=== PATIENT | male | born 1935 | race Caucasian/White ===

== ENCOUNTER 2018-04-26 13:15 | Inpatient (IN) | payer MEDICARE, BC ==
[2018-04-26] VITALS (17 sets, daily range): BP systolic 102–136; BP diastolic 59–88; PULSE 58–90; RESP 14–22; Ht 180.3 cm; Wt 74.8 kg
[~2018-04-26] VITALS: Ht 180.3 cm; Wt 74.8 kg
[~2018-04-26 13:15] MED LIST: CEFAZOLIN 2 GM/50 ML (PMX) 50 ML IVPB ONE; DESFLURANE 15 MIN ONE; DEXAMETHASONE 4 MG/ML 5 ML INJ ONE; EZET10TA31 PO; LABETALOL HCL 20MG INJ ONE; LACTATED RINGER'S 1,000 ML IV* SCH; LIDOCAINE 2% (SDV) 5 ML INJ ONE; LISI-327 PO; ONDANSETRON 4 MG INJ ONE; PROPOFOL 200 MG INJ ONE
[2018-04-26] MEDS ORDERED: LISI1TAB6 PO (13:50)
[2018-04-26] MEDS ORDERED: ATOR20TA38 PO (13:51)
[2018-04-26] MEDS ORDERED: MIDAZOLAM 1 MG/ML 2 ML INJ ONE (14:46)
[2018-04-26] MEDS ORDERED: FENTAnyl 50 MCG/ML VIAL ONE ×2 (14:46→16:25)
[2018-04-26] MEDS ORDERED: METOCLOPRAMIDE 10 MG INJ ONE (14:47)
[2018-04-26] MEDS ORDERED: CEFAZOLIN 1 GM INJ ONE (14:48)
[2018-04-26] MEDS ORDERED: GLYCOPYRROLATE 0.4 MG INJ ONE (14:50)
[2018-04-26] MEDS ORDERED: NEOSTIGMINE 3 MG/3 ML SYRINGE ONE (14:50)
--- NOTE | 2018-04-26 14:59 | HPN ---
Date/Time of Note Date/Time of Note DATE: 04/26/18 TIME: 14:59 Interval H&P Admission Note Pt. seen H&P reviewed: No system changes OLY CISNEROS PA-C Apr 26, 2018 14:59
[2018-04-26] MEDS ORDERED: DIPHENHYDRAMINE 25 MG CAP PO PRN (15:00)
[2018-04-26] MEDS ORDERED: ACETAMINOPHEN 325 MG TAB PO PRN (15:00)
[2018-04-26] MEDS ORDERED: D5W-0.45 NACL + KCL 20 MEQ 1,000 ML IV SCH (15:00)
[2018-04-26] MEDS ORDERED: HYDROCODONE/APAP (10/325) TAB PO PRN ×2 (15:00)
[2018-04-26] MEDS ORDERED: BISACODYL 10 MG SUPP PR PRN (15:00)
[2018-04-26] MEDS ORDERED: AL HYDROX/MG HYDROX/SIMETH 30 ML CUP PO PRN (15:00)
[2018-04-26] MEDS ORDERED: NALOXONE (0.4 MG/ML) INJ IV PRN (15:00)
[2018-04-26] MEDS ORDERED: CEPASTAT LOZENGE MT PRN (15:00)
[2018-04-26] MEDS ORDERED: ONDANSETRON 4 MG INJ IV PRN ×2 (15:00→15:30)
[2018-04-26] MEDS ORDERED: DIPHENHYDRAMINE 50 MG INJ IV PRN ×2 (15:00→15:30)
[2018-04-26] MEDS ORDERED: CYCLOBENZAPRINE 10 MG TAB PO PRN (15:00)
[2018-04-26] MEDS ORDERED: HYDROmorphONE 0.5 MG/0.5 ML SYG IV PRN (15:00)
--- NOTE | 2018-04-26 15:19 | PREAC ---
Date/Time of Note Date/Time of Note DATE: 04/26/18 TIME: 15:18 Anesthesia Eval and Record Evaluation Time Pre-Procedure Interview DATE: 04/26/18 TIME: 15:18 Age 82 Sex male NPO: 8 hrs Preoperative diagnosis cervical spinal stenosis Planned procedure posterior cervical fusion Past Medical History Past Medical History: Includes Cardio: HTN Surgery & Anesthesia Issues Hx of difficult intubation Meds Anticoagulation: No Beta Carmen within 24 hr: No Reason Beta Carmen not given: Pt. not on B-Carmen Reported Medications Atorvastatin Calcium* (Atorvastatin Calcium*) 20 Mg Tablet, 20 MG PO QHS, #30 TAB 04/26/18 Lisinopril/Hydrochlorothiazide (Lisinopril-Hctz 20-12.5 mg Tab) 1 Each Tablet, 1 EACH PO DAILY, TAB 04/26/18 Discontinued Reported Medications Lisinopril-Hydrochlorothiazide (Lisinopril-HCTZ) 1 Tab Tablet, 1 TAB PO DAILY 06/29/13 Ezetimibe* (Zetia*) 10 Mg Tablet, 10 MG PO DAILY 02/14/11 Current Medications Lactated Ringer's 1,000 ml @ 0 mls/hr Q0M IV* ; Start 04/26/18 at 11:00; Stop 04/26/18 at 19:00 Potassium Chloride/Dextrose/ Sod Cl 1,000 ml @ 100 mls/hr Q10H IV ; Start 04/26/18 at 15:00; Status UNV Acetaminophen/ Hydrocodone Bitart ([place] (10/325)) 1 tab Q4H PRN PO PAIN LEVEL 1-5; Start 04/26/18 at 15:00; Status UNV Acetaminophen/ Hydrocodone Bitart ([place] (10/325)) 2 tab Q4H PRN PO PAIN LEVEL 6-10; Start 04/26/18 at 15:00; Status UNV Hydromorphone HCl (Dilaudid) 0.2 mg Q1H PRN IV BREAKTHROUGH PAIN; Start 04/26/18 at 15:00; Status UNV Cefazolin Sodium 50 ml @ 100 mls/hr Q8H IVPB ; Start 04/26/18 at 15:00; Stop 04/27/18 at 07:29; Status UNV Ondansetron HCl (Zofran Inj) 4 mg Q6H PRN IV NAUSEA AND/OR VOMITING; Start 04/26/18 at 15:00; Status UNV Bisacodyl (Dulcolax Supp) 10 mg DAILY PRN [place] CONSTIPATION; Start 04/26/18 at 15:00; Status UNV Docusate Sodium (Colace) 100 mg BID PO ; Start 04/26/18 at 21:00; Status UNV Al Hydrox/Mg Hydrox/Simethicone (Mag-Al Plus) 15 ml Q6H PRN PO const; Start 04/26/18 at 15:00; Status UNV Acetaminophen (Tylenol Tab) 650 mg Q4H PRN PO fever; Start 04/26/18 at 15:00; Status UNV Cyclobenzaprine HCl (Flexeril) 5 mg TID PRN PO MUSCLE SPASMS; Start 04/26/18 at 15:00; Status UNV Phenol (Cepastat Lozenge) 1 lozenge PRN PRN MT SORE THROAT; Start 04/26/18 at 15:00; Status UNV Diphenhydramine HCl (Benadryl) 25 mg Q6H PRN PO ITCHING; Start 04/26/18 at 15:00; Status UNV Diphenhydramine HCl (Benadryl) 25 mg Q6H PRN IV ITCHING; Start 04/26/18 at 15:00; Status UNV Naloxone HCl (Narcan) 0.2 mg Q2M PRN IV rr; Start 04/26/18 at 15:00; Status UNV Meds reviewed: Yes Allergies Coded Allergies: No Known Allergies (Verified Allergy, Unknown, 04/26/18) PER WRITTEN ORDER Allergies Reviewed: Yes Labs/Studies Labs Reviewed: Reviewed by anesthesiologist test: N/A Studies: ECG, CXR Pre-procedure Exam Last vitals Vital Signs Date Temp Pulse Resp B/P (MAP) Pulse Ox O2 O2 Flow FiO2 Time Delivery Rate 04/26/18 98.8 90 16 136/81 93 Room Air 13:52 (99) Airway: Adequate mouth opening, Adequate thyromental dist Mallampati: Mallampati III Teeth: Normal Lung: Normal Heart: Normal ASA Physical Status ASA physical status: 3 Emergency: None Planned Anesthetic General/MAC: ETT Planned Pain Management Parenteral pain med, Local by surgeon Pre-operative Attestations Prior to commencing anesthesia and surgery, the patient was re-evaluated, there was verification of: *The patient's identity *The results of appropriate recent lab work and preoperative vital signs *The above evaluation not changing prior to induction *Anesthetic plan, risk benefits, alternative and complications discussed with patient/family; questions answered; patient/family understands, accepts and wishes to proceed. SALOMON NUGENT MD Apr 26, 2018 15:19
[2018-04-26] MEDS ORDERED: SURGIFOAM POWDER 1 GM KIT ONE (15:25)
[2018-04-26] MEDS ORDERED: BUPIVACAINE 0.5%/EPI (SDV) 30 ML INJ ONE (15:25)
[2018-04-26] MEDS ORDERED: POLYMYXIN/BACITRACIN 1L IRRIG ONE (15:27)
[2018-04-26] MEDS ORDERED: LEVALBUTEROL (NEB) 1.25 MG/0.5 ML AMP HHN PRN (15:30)
[2018-04-26] MEDS ORDERED: MEPERIDINE 25 MG INJ IV PRN (15:30)
[2018-04-26] MEDS ORDERED: hydrALAzine 20 MG INJ IV PRN (15:30)
[2018-04-26] MEDS ORDERED: LABETALOL HCL 20MG INJ IV PRN (15:30)
[2018-04-26] MEDS ORDERED: FENTAnyl 50 MCG/ML VIAL IV PRN ×2 (15:30)
[2018-04-26] MEDS ORDERED: HYDROmorphONE 1 MG/5 ML IV SYRINGE IV PRN ×3 (15:30)
[2018-04-26] MEDS ORDERED: THROMBIN 5000 UNIT VIAL ZFS ONE (15:38)
[2018-04-26] MEDS ORDERED: CEFAZOLIN 1 GM/50 ML (PMX) 50 ML IVPB SCH (16:00)
[2018-04-26] MEDS ORDERED: BUPIVACAINE 0.25% (MPF) 30 ML INJ ONE (16:51)
[2018-04-26] MEDS ORDERED: BUPIVACAINE 0.25% (MPF) 30 ML INJ INJ ONE (17:04)
--- NOTE | 2018-04-26 17:23 | SIPON ---
Date/Time of Note Date/Time of Note DATE: 04/26/18 TIME: 17:22 Operative Report Preoperative Diagnosis Cervical disc disease and stenosis Postoperative Diagnosis Cervical disc disease and stenosis Operation/Procedure Performed Posterior cervical fusion with instrumentation Surgeon see signature line speech assistant Coco Martin PA-C Anesthesia: general Estimated blood loss: 10 - 50 ml's Transfusion Required none Specimen None Grafts/Implants Cage and intervertebral screws Complications none JOEL MERCEDES MD Apr 26, 2018 17:23
--- NOTE | 2018-04-26 17:44 | OPR ---
DATE OF OPERATION: 04/26/2018 PREOPERATIVE DIAGNOSES: 1. C5 to C6, C6 to C7 facet disease and chronic neck pain. 2. History of C7 spinous process fracture. POSTOPERATIVE DIAGNOSES: 1. C5 to C6, C6 to C7 facet disease and chronic neck pain. 2. History of C7 spinous process fracture. PROCEDURES: 1. Instrumented cervical fusion at C5 to C6 and C6 to C7. 2. Posterolateral fusion at C5 to C6 and C6 to C7. 3. Intervertebral mechanical device at C5 to C6 and C6 to C7 bilaterally. 4. Use of C-arm fluoroscopy with interpretation without radiologist present. 5. Intraoperative neuromonitoring. 6. Use of allograft. IMPLANTS: 1. Todd DTRAX 5 mm cage bilaterally at C5 to C6 with integral screws. 2. A 4 mm cage bilaterally at C6 to C7 with integral screw. 3. Biosphere. PRIMARY SURGEON: Brain Dewey MD CERTIFIED FIRE INVESTIGATOR: Coco Martin PA-C NEED FOR ABA TUTOR: During this spinal surgical procedure, my library serials assistant was used to retract and protect the spinal nerves and dural sac. My library serials assistant also employed the suction catheters to ev acuate blood from the surgical field to improve visualization of the neural structures. The assistan t was medically necessary to facilitate the completion of the surgery in a safe and expeditious [facility] r. [facility] regulations, as well as hospital bylaws, preclude the use of non-licensed [facility] care personnel, such as operating room technicians, to perform these functions. FINDINGS: Neuromonitoring at the start of the case revealed C5 amplitude down 10% bilaterally, C6 do wn 30% bilaterally, C7 down 30% bilaterally, C8 down 20% bilaterally. At the end of the case, nerve signals returned to normal. ESTIMATED BLOOD LOSS: 40 mL. DRAINS: None. SPECIMENS: None. COMPLICATIONS OF PROCEDURES: None. ANESTHESIOLOGIST: Dr. Diallo. TYPE OF ANESTHESIA: General. INDICATIONS FOR PROCEDURE: This is an 82-year-old gentleman with chronic neck pain in setting of cer vical facet disease at C5 to C6 and C6 to C7. Multiple diagnostic injections were done preoperativel y and after failure of conservative measures, I recommended that he undergo the above procedure. Pre operatively, we discussed risks, benefits, alternatives. He understood and wished to proceed. DESCRIPTION OF PROCEDURE IN DETAIL: The patient was identified in the preoperative holding area, giv en Ancef antibiotics in the operating room where he was successfully placed under general anesthesia. Neuromonitoring were placed, sequential devices were applied. Arterial line was placed. Remote in traoperative neuromonitoring was performed by Dr. Killian from 15:30 until 17:20 to include SSEP, M EP and EMG performed by [employer]. The patient was placed on the operating table in prone pos ition over bolsters. Arms were tucked. Neck was prepped and draped in usual sterile fashion. Using the sterile fluoroscope, I identified the incision site. I anesthetized the skin with Marcaine and epinephrine. Incision was made near the C7 spinous process. I then made parasagittal fascial incisi ons. Using the appropriate instrumentation, I was able to enter the facet joints bilaterally at C5 t o C6 and C6 to C7. I prepared the endplates at both levels. Using biplanar C-arm fluoroscope, I con firm that I was within the facet joints and neither medial nor lateral. Once I prepared the endplate s, I chose the appropriate graft height. I then took the titanium cage within which I placed allogra ft and I impacted intervertebral biomechanical device within the facet joints of C5 to C6 and C6 to C 7 bilaterally, followed by placement of the integral screw. I then decorticated the posterior facets and placed allograft for posterolateral fusion at C5 to C6 and C6 to C7. Once this was done, I took AP, lateral images. I was happy with the placement of the hardware and alignment of spine. The wou nd was irrigated. After injecting Surgifoam, hemostasis was achieved with Bovie cautery. At this po int, all nerve signals returned to normal. I then proceeded to close the wound in layers, closing de ep fascia with #1 Vicryl stitch. I closed the subcutaneous tissue with a 2-0 Vicryl stitch. A 4-0 M onocryl closure was then performed. Dermabond and sterile dressings were then applied. The patient was awakened from anesthesia and taken to the recovery room in stable condition. Lap, sponge and ins trument counts were correct x2. There were no apparent complications during the procedure. The patient will be admitted to the [facility] for routine postoperative care to include pain co ntrol, neurovascular checks, antibiotics and physical therapy. Dictated By: BRAIN BAH/LARISA Conf#: [id number] [facility]#: [id number]
--- NOTE | 2018-04-26 18:07 | NUR ---
PACU NOTES: PATIENT AWAKE AND ALERT. ON 2 L NC 100% S/P C5-C7 POSTERIOR CERVICAL FUSION W/ 4X4 TEGADERM DRESSING POSTERIOR CERVICAL ( BACK OF HIS NECK) NO DRAIN NO BLEEDING, ABLE TO TURN AND REPOSITION. A-LINE ON LEFT RADIAL DISCONTINUED. NO STEPHEN CATH DUE TO VOID. IVF INFUSING ON LEFT FOREARM. ICE PACK PLACED ON HIS CERVICAL SURGICAL SITE. NO COMPLAIN OF PAIN. INCENTIVE SPIROMETER ABLE TO DO UPTO 1500 X5. FAMILY NOTIFIED OF TRANSFER TO ROOM 402. DR. MERCEDES WITH ORDER TO DISCHARGE PATIENT AFTER WALKING WITH RN, AFTER VOIDING,DRINKING AND WHEN STABLE. REPORT GIVEN TO RADHA RN 64, 124/86,99% 18, 98.5
--- NOTE | 2018-04-26 18:40 | NUR ---
PACU NOTES: PATIENT TOLERATED P.O FLUIDS, DUE TO VOID, REPORT GIVEN TO ED MICHAUD RN, RUBI NOTIFIED OF TRANSFER TO ROOM 402 AND LATER WILL BE DISCHARGE. NO COMPLAIN OF PAIN
--- NOTE | 2018-04-26 19:00 | NUR ---
EOSS: Pt received in stable condition from PACU. Pt A&Ox4. Dressing c/d/i. Vitals stable. Pt tolerating oral fluids and denies pain. Will endorse to oncoming nurse. Call light within reach, bed alarm on, SCDs on.
--- NOTE | 2018-04-26 20:00 | NUR ---
PT REQUESTING TO BE AMBULATED SO HE COULD GO HOME. STATES HE FEELS FINE, HE URINATED, DENIES NAUSEA, DENIES PAIN, VSS AFEBRILE. RESP, EVEN AND UNLABORED, SKIN FLESHTONE WARM AND DRY. DRESSING ON POSTERIOR NECK CDI. PT AMBULATED WITH NO ASSISTANCE, STEADILY ABOUT 500 FEET OR 2 FULL LAPS AROUND NURSES STATION. HL LEFT HAND REMOVED. DC PACKET GIVEN WITH INSTRUCTIONS TO GO TO ER IF INCREASING PAIN WITH NO HELP FROM HIS MEDS, BLEEDING TO NECK SITE, AND IF DEVELOPS FEVER. INSTRUCTED TO NOT BEND OVER, NOT TO LIFT ET TO KEEP APPOINTMENT WITH DR MERCEDES. PT AND SPOUSE VERBALIZE UNDERSTANDING. PT ASSISTED TO POV BY ADMISSIONS CLINICIAN VIA WC. TO BE NOTED PT ASKED TO BE DISCHARGED NASRA ET FULL ASSESSMENT WAS NOT DONE. PT ON FLOOR LESS THAN AN HOUR. CN AWARE.
[2018-04-26] MEDS ORDERED: DOCUSATE SODIUM 100 MG CAP PO SCH (21:00)
--- NOTE | 2018-04-27 08:54 | DS ---
Date/Time of Note Date/Time of Note DATE: 04/27/18 TIME: 08:52 Discharge Summary Admission/Discharge Info Admit Date/Time Apr 26, 2018 at 13:15 Discharge Date/Time Apr 26, 2018 at 20:00 Discharge Diagnosis Cervical fusion Patient Condition: Good Procedures Posterior cervical fusion Hospital Course Patient was admitted [facility] the [facility] after undergoing a posterior cervical fusion. He did well and his postoperative course was uncomplicated. By postoperative day 0 he was deemed stable for discharge of follow-up arranged with the undersigned Home Meds Reported Medications Atorvastatin Calcium* (Atorvastatin Calcium*) 20 Mg Tablet, 20 MG PO QHS, #30 TAB 04/26/18 Lisinopril/Hydrochlorothiazide (Lisinopril-Hctz 20-12.5 mg Tab) 1 Each Tablet, 1 EACH PO DAILY, TAB 04/26/18 Discontinued Reported Medications Lisinopril-Hydrochlorothiazide (Lisinopril-HCTZ) 1 Tab Tablet, 1 TAB PO DAILY 06/29/13 Ezetimibe* (Zetia*) 10 Mg Tablet, 10 MG PO DAILY 02/14/11 Primary Care Provider Not On Staff Doctor JOEL MERCEDES MD Apr 27, 2018 08:54
--- NOTE | 2018-04-28 10:39 | PAC ---
Date/Time of Note Date/Time of Note DATE: 04/28/18 TIME: 10:39 Post-Anesthesia Notes Post-Anesthesia Note Last documented vital signs Vital Signs Date Temp Pulse Resp B/P (MAP) Pulse Ox O2 O2 Flow FiO2 Time Delivery Rate 04/26/18 99.4 67 16 109/59 98 Room Air 19:52 (76) Activity: WNL Respiratory function: WNL Cardiovascular function: WNL Mental status: Baseline Pain reasonably controlled: Yes Hydration appropriate: Yes Nausea/Vomiting absent: Yes SALOMON NUGENT MD Apr 28, 2018 10:39
== END 2018-04-26 20:00 | disposition home or self-care (01) | DRG 472 ==
LOC: REC 13:15 → MS1 19:35
PROVIDERS: ADMIT Specialist; ATTEND Specialist
PROC: 0RG20AJ Fusion of 2 or more Cervical Vertebral Joints with Interbody Fusion Device, Posterior Approach, Anterior Column, Open Approach (ICD-10-PCS; principal; 2018-04-26 15:30)
DX: M48.02 Spinal stenosis, cervical region (principal); M48.52XA Collapsed vertebra, not elsewhere classified, cervical region, initial encounter for fracture; M50.323 Other cervical disc degeneration at C6-C7 level; G89.29 Other chronic pain; I10 Essential (primary) hypertension; E78.00 Pure hypercholesterolemia, unspecified; Z96.643 Presence of artificial hip joint, bilateral; Z87.891 Personal history of nicotine dependence; Z85.46 Personal history of malignant neoplasm of prostate
CPT/HCPCS: 72040; J0690; J1100; J2250; J2405; J2710; J2765; J3010